=== PATIENT | male | born 1995 | race Asian ===

== ENCOUNTER 2017-05-18 00:38 | Emergency (ER) | payer OTHER ==
[~2017-05-18] VITALS: Ht 188 cm; Wt 99.8 kg
[2017-05-18 00:38] VITALS: BP_SYST 146
[2017-05-18] MEDS ORDERED: ALBUTEROL SULFATE 0.083% 2.5 MG/3 ML VIAL.NEB INH ONE ×2 (00:44→01:00)
[2017-05-18] MEDS ORDERED: IPRATROPIUM/ALBUTEROL SULFATE 3 ML AMPUL.NEB INH ONE (02:00)
[2017-05-18 02:30] VITALS: BP_SYST 132
== END 2017-05-18 02:30 | disposition home or self-care (01) ==
LOC: SED 00:38
DX: J45.901 Unspecified asthma with (acute) exacerbation (principal)
CPT/HCPCS: 94640; 99284